=== PATIENT | female | born 1975 | race Caucasian/White ===

== ENCOUNTER 2020-08-31 19:33 | Emergency (ER) | payer OTHER, SELFPAY ==
[2020-08-31 19:38] VITALS: BP 148/62; PULSE 78; RESP 20; TEMP 36.7; O2SAT 98
--- NOTE | 2020-08-31 19:58 | ED.GENADULT ---
HPI - General Adult General Chief complaint: Recheck/Abnormal Lab/Rx Stated complaint: need a blood transfusion Time Seen by Provider: 08/31/20 19:44 Source: patient Mode of arrival: ambulatory Limitations: no limitations History of Present Illness HPI narrative: Patient is a 44-year-old female sent here by her family doctor due to low hemoglobin, had her H&H checked this past Sunday and it was 6 . Patient states that she just finished her muscle cycle the day before the took her lab work. Patient states that she has a history of anemia and supposed to be on iron pills but she has not been taking it. Patient also states that she has a history of gastric bypass which contributes to her anemia and by not taking iron pills she expected her hemoglobin to be low. Patient denies any GI bleeding or bleeding. Patient states that she felt tired the past week which he attributes to working double shifts. Patient denies being weak, just tired . Review of Systems Review of Systems: All systems reviewed & are unremarkable except as noted in HPI and below Constitutional: Constitutional: Denies body ache(s), Denies chills, Denies excessive sweating, Denies fatigue, Denies fever(s), Denies headache(s), Denies lethargy, Denies malaise and Denies weight loss Eyes: Eyes: Denies blurry vision, Denies change in vision and Denies loss of vision ENT: Denies dizziness, Denies ear discharge, Denies headache(s), Denies lip swelling, Denies epistaxis, Denies nasal congestion, Denies neck pain, Denies throat swelling and Denies tongue swelling Cardiovascular: Cardiovascular: Denies chest pain, Denies chest pain at rest, Denies chest pain with activity, Denies diaphoresis, Denies rapid heart rate, Denies edema, Denies irregular heart rhythm, Denies lightheadedness, Denies palpitations, Denies dyspnea and Denies dyspnea on exertion Respiratory: Respiratory: Denies chest congestion, Denies cough, Denies hemoptysis, Denies dyspnea and Denies dyspnea on exertion Gastrointestinal: Gastrointestinal: Denies abdominal pain, Denies melena, Denies hematochezia, Denies diarrhea, Denies nausea, Denies vomiting and Denies hematemesis Musculoskeletal: Musculoskeletal: Denies abnormal gait, Denies deformity, Denies joint swelling, Denies limited range of motion, Denies neck pain and Denies numbness Neurologic: Denies Abnormal speech present, Denies abnormal gait, Denies confusion, Denies dizziness, Denies headache(s), Denies focal weakness, Denies loss of vision, Denies numbness, Denies Other visual disturbances and Denies Sensory deficit (Neuro) Psychiatric: Psychiatric: Denies confusion, Denies depression, Denies auditory hallucinations, Denies homicidal ideation and Denies suicidal ideation Endocrine: Endocrine: Denies cold intolerance, Denies excessive sweating, Denies fatigue, Denies heat intolerance and Denies palpitations Hematologic/Lymphatic: Hematologic/Lymphatic: Denies easy bleeding and Denies easy bruising Allergic/Immunologic: Allergic/Immunologic: Denies lip swelling, Denies throat swelling and Denies tongue swelling Exam Const: General: cooperative, healthy appearing, comfortable, no acute distress, well developed, alert and awake; No confusion Orientation/consciousness: oriented to person, oriented to place, oriented to time, patient oriented x3 and No confusion Limitations: no limitations HENMT: Head: normal to inspection, normocephalic and atraumatic Ears: hearing grossly normal bilaterally, TM normal on the right and TM normal on the left General nose exam: Normal external nose present, Normal nares present and No nasal discharge present Face and sinus: normal facial exam Mouth: Yes Normal oral and palatal mucosa present, Yes lip normal, Yes tongue normal and Yes oropharynx normal Throat: posterior oropharynx normal, tonsils normal and uvula midline Eyes: General: appearance normal, both eyes and all related structures Pupils: Equal, round and reactive pup
[2020-08-31 20:02] LABS: Basophils Absolute Auto 0.1 K/mm3 (0.0-0.1); Basophils Percent Auto 0.8 % (0.2-1.2); Eosinophils Absolute Auto 0.1 K/mm3 (0-0.3); Eosinophils Percent Auto 1.7 % (0-4.4); Hematocrit 25.3 % (37.0-47.0); Immature Granulocyte Absolute 0.01 K/mm3 (0.00-0.031); Immature Granulocyte Percent A 0.2 % (0-0.5); Immature Platelet Fraction Pct 7.1 % (0.9-11.2); Lymphocytes Absolute Auto 2.35 K/mm3 (0.9-3.2); Lymphocytes Percent Auto 39.9 % (18.3-44.2); Mean Corpuscular HGB Conc 26.9 g/dl (32-36); Mean Corpuscular Hemoglobin 16.6 pg (26-34); Mean Corpuscular Volume 61.9 fl (80-100); Monocytes Absolute Auto 0.5 K/mm3 (0.1-0.6); Monocytes Percent Auto 7.8 % (2.6-8.5); Neutrophils Absolute Auto 2.9 K/mm3 (1.3-6.7); Neutrophils Percent Auto 49.6 % (45.5-73.1); Platelet Count Result 373 k/mm3 (150-375); Red Blood Count 4.09 M/mm3 (4.2-5.4); White Blood Count 5.9 K/mm3 (4.5-10.0)
[2020-08-31 20:10] LABS: INR 1.1; Partial Thromboplastin Time 27.2 SECONDS (22.3-36.8); Prothrombin Time 13.8 Seconds (11.1-14.7)
[2020-08-31 20:12] LABS: Alanine Aminotransferase 13 U/L (4-35); Albumin Level 4.4 g/dL (3.5-5.1); Alkaline Phosphatase 123 U/L (38-126); Anion Gap 9 mmol/L (8-16); Aspartate Amino Transferase 26 U/L (14-36); Bilirubin,Total 0.3 mg/dL (0.2-1.3); Blood Urea Nitrogen 9 mg/dL (7-17); Calcium 9.1 mg/dL (8.4-10.2); Carbon Dioxide 27 mmol/L (22-30); Chloride 106 mmol/L (98-107); Estimated CRCL calculation 82 ml/min; Estimated Glomerular Filt Rate > 60; Glucose 97 mg/dL (65-105); Potassium 3.9 mmol/L (3.4-5.0); Sodium 142 mmol/L (137-145)
[2020-08-31 20:21] LABS: Hemoglobin 6.8 g/dL (12.0-15.0)
[2020-08-31 20:25] LABS: Anisocytosis 3+ (NORMAL); Hypochromasia 2+ (NORMAL); Ovalocytes 1+ (NORMAL); Platelet Estimate Adequate (Adequate)
[2020-08-31] MEDS: FERROUS SULFATE 324 MG TABLET PO (21:16)
[2020-08-31 21:20] VITALS: BP 132/88; PULSE 76; RESP 18; O2SAT 99
== END 2020-08-31 21:22 | disposition home or self-care (01) ==
PROVIDERS: Emergency Provider Emergency Medicine; PCP Nurse Practitioner Family
DX: D50.9 Iron deficiency anemia, unspecified (principal)
CPT/HCPCS: 36415; 80053; 85025; 85055; 85610; 85730; 86850; 86900; 86901; 99283; A9270

== ENCOUNTER 2020-09-03 15:58 | Observation (INO) | payer OTHER, SELFPAY ==
[2020-09-03] VITALS (12 sets, daily range): BP systolic 114–136; BP diastolic 62–104; PULSE 64–99; RESP 16–25; TEMP 36.3–36.9; O2SAT 98–100; BMI 35.2
--- NOTE | 2020-09-03 16:04 | ECG_ITS ---
Measurements Intervals [place] Rate: 70 P: 41 IL: 141 QRS: 19 QRSD: 106 T: 14 QT: 384 QTc: 416 Interpretive Statements SINUS RHYTHM NORMAL ECG Electronically Signed On 09-03-2020 17:10:47 CDT by Akash Hylton D.O.
[2020-09-03 16:52] LABS: Basophils Absolute Auto 0.1 K/mm3 (0.0-0.1); Basophils Percent Auto 0.8 % (0.2-1.2); Eosinophils Absolute Auto 0.1 K/mm3 (0-0.3); Eosinophils Percent Auto 0.9 % (0-4.4); Hematocrit 26.1 % (37.0-47.0); Immature Granulocyte Absolute 0.02 K/mm3 (0.00-0.031); Immature Granulocyte Percent A 0.3 % (0-0.5); Immature Platelet Fraction Pct 7.8 % (0.9-11.2); Lymphocytes Absolute Auto 1.09 K/mm3 (0.9-3.2); Lymphocytes Percent Auto 16.5 % (18.3-44.2); Mean Corpuscular HGB Conc 27.2 g/dl (32-36); Mean Corpuscular Hemoglobin 16.7 pg (26-34); Mean Corpuscular Volume 61.3 fl (80-100); Monocytes Absolute Auto 0.5 K/mm3 (0.1-0.6); Monocytes Percent Auto 7.3 % (2.6-8.5); Neutrophils Absolute Auto 4.9 K/mm3 (1.3-6.7); Neutrophils Percent Auto 74.2 % (45.5-73.1); Platelet Count Result 372 k/mm3 (150-375); Red Blood Count 4.26 M/mm3 (4.2-5.4); White Blood Count 6.6 K/mm3 (4.5-10.0)
[2020-09-03 16:53] LABS: Add Urine Microscopic? YES; Appearance Urine Cloudy (Clear); Bacteria Urine Trace /hpf; Bilirubin Urine Negative (Negative); Blood Urine Negative (Negative); Color Urine Yellow (Yellow); Glucose Urine UA Negative (Negative); Ketones Urine Negative (Negative); Leukocyte Esterase Ur Negative LEU/UL (Negative); Mucus Urine Few /lpf; Nitrate Urine Negative (Negative); Protein Urine Negative (Negative); RBC Urine 0-2 /hpf (0-2); Specific Grav Ur 1.013 (1.001-1.035); Squamous Epithelial Cell Urine Many /hpf (Few)
--- NOTE | 2020-09-03 16:58 | ED.GENADULT ---
HPI - General Adult General Chief complaint: Syncope Stated complaint: SYNCOPE Time Seen by Provider: 09/03/20 16:06 History of Present Illness HPI narrative: Patient is a 44-year-old female who presents to the ER with syncope. Patient was seen in the ER 2 days ago for anemia. Patient declined admission and blood transfusion at that time. She has not been taking her iron or vitamin B supplements. She has history of chronic anemia as well as sickle cell trait. She reports she has been eating chicken and fish to get adequate protein and nourishment. Reports today while she was sitting at work on the phone she began to feel hot and flushed and then lost consciousness. A coworker said she was unconscious for couple minutes. Patient denies any prodrome of chest pain or racing of the heart. She has no dark black stools and denies vaginal bleeding. Related Data Home Medications Medication Instructions Recorded Confirmed No Home Medications 09/03/20 09/03/20 Allergies Allergy/AdvReac Type Severity Reaction Status Date / Time Penicillins AdvReac Rash Verified 09/03/20 16:21 Review of Systems Review of Systems: All systems reviewed & are unremarkable except as noted in HPI and below Constitutional: Constitutional: Denies chills, Denies fever(s) and Denies weakness ENT: Denies nasal congestion and Denies sore throat Cardiovascular: Cardiovascular: Denies chest pain, Denies rapid heart rate and Denies radiating jaw, neck or arm pain Respiratory: Respiratory: Denies cough and Denies dyspnea Neurologic: Reports syncope and Denies focal weakness PMFSH Past Medical History Medical History (Updated 09/03/20 @ 17:32 by Varun Sun MD) Sickle cell trait Surgical History Surgical History (Updated 09/03/20 @ 17:27 by Varun Sun MD) H/O gastric bypass Social History Social History (Updated 09/03/20 @ 17:28 by Varun Sun MD) Smoking status: Never smoker Exam Narrative: Exam Narrative: GENERAL: Well-appearing, well-nourished, and in no acute distress. HEAD: Normocephalic, atraumatic. EYES: PERRL, pale conjunctiva. ENT: Mucous membranes moist. CHEST: Clear to auscultation. No respiratory distress. HEART: Regular rate and rhythm. Normal peripheral pulses. ABDOMEN: Soft, nontender, nondistended. EXTREMITIES: Normal range of motion. No edema. NEURO: Alert and oriented x3. PSYCH: Normal mood and affect. Course Course Emergency Course: Patient informed of results. Admit for observation and transfusion. Vital Signs Vital signs: Vital Signs Temperature 98.3 F 09/03/20 16:10 Pulse Rate 79 09/03/20 16:10 Respiratory Rate 19 09/03/20 16:10 Blood Pressure 114/104 H 09/03/20 16:10 Pulse Oximetry 100 09/03/20 16:10 Temperature 98.3 F 09/03/20 16:10 Pulse Rate 68 09/03/20 17:24 Respiratory Rate 25 H 09/03/20 17:24 Blood Pressure 127/90 09/03/20 17:24 Pulse Oximetry 100 09/03/20 17:24 Medical Decision Making Vital Signs Vital Signs: Vital Signs Temperature 98.3 F 09/03/20 16:10 Pulse Rate 79 09/03/20 16:10 Respiratory Rate 19 09/03/20 16:10 Blood Pressure 114/104 H 09/03/20 16:10 Pulse Oximetry 100 09/03/20 16:10 Temperature 98.3 F 09/03/20 16:10 Pulse Rate 68 09/03/20 17:24 Respiratory Rate 25 H 09/03/20 17:24 Blood Pressure 127/90 09/03/20 17:24 Pulse Oximetry 100 09/03/20 17:24 Lab Data Result diagrams: 09/03/20 16:25 09/03/20 16:25 Labs: Lab Results 09/03/20 09/03/20 09/03/20 Range/Units 16:25 16:25 16:25 WBC 6.6 (4.5-10.0) K/mm3 RBC 4.26 (4.2-5.4) M/mm3 Hgb 7.0 L (12.0-15.0) g/dL Hct 26.1 L (37.0-47.0) % MCV 61.3 L (80-100) fl MCH 16.7 L (26-34) pg MCHC 27.2 L (32-36) g/dl RDW 22.0 H (11.5-14.5) % Plt Count 372 (150-375) k/mm3 MPV TNP Immature Gran % (Auto) 0.3 (0-0.5) % Neut % (Auto) 74.2 H (45.5-
[2020-09-03 17:00] LABS: Hypochromasia 2+ (NORMAL); Ovalocytes 2+ (NORMAL); Platelet Estimate Adequate (Adequate)
[2020-09-03 17:01] LABS: Crenated RBC 1+ (NORMAL); Target Cells 1+ (NORMAL)
[2020-09-03 17:02] LABS: Anion Gap 9 mmol/L (8-16); Blood Urea Nitrogen 11 mg/dL (7-17); Calcium 9.2 mg/dL (8.4-10.2); Carbon Dioxide 25 mmol/L (22-30); Chloride 105 mmol/L (98-107); Estimated CRCL calculation 104 ml/min; Estimated Glomerular Filt Rate > 60; Glucose 81 mg/dL (65-105); Potassium 4.1 mmol/L (3.4-5.0); Sodium 139 mmol/L (137-145)
[2020-09-03 17:27] LABS: Iron 24 ug/dL (37-170)
[2020-09-03 17:34] LABS: Percent Iron Saturation 5 % (20-50)
[2020-09-03 18:00] LABS: Ferritin 3.83 ng/mL (6.24-137)
--- NOTE | 2020-09-03 18:25 | ADMGEN ---
This patient, Colleen Mccloud, was admitted to Medical Room 250-01. Patient/family oriented to hospital policies and general routines including ID bracelet, bed and alarms, visiting hours, pain management, procedures, bathroom and other care routines, personal items, smoking policy, room service/diet, and visiting hours. Information on how to activate the Rapid Response Team has been discussed. Patient/Family are encouraged to report perceived risks to care and to ask questions if they do not understand what they are told or what they should do.
[2020-09-03 18:29] LABS: Folic Acid 7.5 ng/mL (2.76->20)
[2020-09-03 18:36] LABS: Hematocrit 25.9 % (37.0-47.0)
[2020-09-03] MEDS: SODIUM CHLORIDE 0.9% IV 250 ML 30 ML IV CONT (20:27)
[2020-09-03 20:33] LABS: Immature Reticulocyte Fraction 20.1 % (3.0-15.9); Reticulocyte Hemoglobin Conten 17.8 pg (28.2-35.7); Reticulocyte Percent 1.33 % (0.7-4.3); Reticulocytes Absolute 0.06 B/L (32.2-175.7)
--- NOTE | 2020-09-03 20:33 | PM.IMHP ---
H&P: HPI History of Present Illness Date/Time: 09/03/20 20:33 Chief complaint: SYNCOPE,ANEMIA Narrative: Colleen Mccloud is a 44 year old female Who has a history of anemia. The patient has had a gastric bypass several years ago and has not been taking any B12 or iron. The patient stated that her hemoglobin has not been above 9 and a long time. She has been going to school working full-time and just has been feeling very fatigued. The patient was working at [employer] today when she passed out. She felt very fatigued she did not have any chest pain or shortness of breath. The patient came to ER 2 days ago due to her anemia she said that she has not had any blood transfusions in the past. She has not been taking her iron or B12 supplements. She also has a sickle cell trait. Her hemoglobin was 7.0 today and 2 days ago was 6.8. the patient was sent here on 08/31/2020 from her doctor's office because her hemoglobin was 6 . The patient stated she recently had a menstrual period but it was not heavy. patient has been typed and cross-matched for 2 units packed red blood cells. We have discussed the side effects of a reaction to blood. I also added anemia profile and I call lab to see what labs can be taken from the blood that they already Retrieved. Patient's ferritin and iron are low. we discussed seeing a rehabilitation clerk and the patient stated that she would agree to see him tomorrow face not available to see her tomorrow that she would be able to follow-up outpatient ang. She is admitted as observation on the date of service of 09/03/2020 Review of Systems Review of Systems: All systems reviewed & are unremarkable except as noted in HPI and below Constitutional: Constitutional: Reports as per HPI and Reports no additional constitutional complaints Eyes: Eyes: Reports as per HPI and Reports no additional eye complaints ENT: Reports system reviewed and no additional complaints, except as documented and Reports Normal hearing present Cardiovascular: Cardiovascular: Reports no additional cardiovascular complaints Respiratory: Respiratory: Reports no additional respiratory complaints and Reports no additional respiratory complaints Gastrointestinal: Gastrointestinal: Reports as per HPI and Reports no additional gastrointestinal complaints Musculoskeletal: Musculoskeletal: Reports no additional musculoskeletal complaints Integumentary/Breasts: Skin/Breast: Reports system reviewed and no additional complaints, except as docu and Reports as per HPI Neurologic: Reports system reviewed and no additional complaints, except as documented, Reports as per HPI and Reports Normal hearing present Psychiatric: Psychiatric: Reports no additional psychiatric complaints and Reports as per HPI Endocrine: Endocrine: Reports no additional endocrine complaints Hematologic/Lymphatic: Hematologic/Lymphatic: Reports no additional hematologic/lymphatic complaints Allergic/Immunologic: Allergic/Immunologic: Reports no additional allergic/immunologic complaints PMFSH Past Medical History Medical History (Updated 09/03/20 @ 20:41 by Evelina Fox NP) Sickle cell trait Surgical History Surgical History (Updated 09/03/20 @ 20:41 by Evelina Fox NP) H/O gastric bypass History of section, classical x4 Family History Family History Father Congestive heart failure Social History Social History (Updated 09/03/20 @ 20:43 by Evelina Fox NP) Social History: the patient works full-time at [employer] and 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 She has 5 children. Her son Gabe is over the age of 18 and she desires to have him is a durable power civil rights attorney for healthcare. She is a full code. She occasionally has a drink of alcohol but very rarely. Only on special occasions. She is a
[2020-09-03 21:26] LABS: Bilirubin,Total 0.4 mg/dL (0.2-1.3); Lactate Dehydrogenase 354 U/L (313-618)
[2020-09-03 21:34] LABS: Transferrin 365 mg/dL (206-381)
[2020-09-03 22:13] LABS: Thyroid Stimulating Hormone Reflex 0.944 uIU/mL (0.465-4.68)
[2020-09-04] VITALS (15 sets, daily range): BP systolic 95–124; BP diastolic 48–77; PULSE 57–86; RESP 16–20; TEMP 36.4–37.2; O2SAT 99–100
[2020-09-04 05:24] LABS: Hematocrit 27.4 % (37.0-47.0)
[2020-09-04 05:41] LABS: IFOB Positive Control Positive; Immunochemical Fecal Occult Bl Negative (N)
--- NOTE | 2020-09-04 10:43 | PM.IMPN ---
Progress Note: A&P Assessment and Plan (1) Iron deficiency anemia: Code(s): D50.9 - Iron deficiency anemia, unspecified Status: Acute Assessment and Plan: Secondary to history of gastric bypass and noncompliance with needed supplements. She has not taken her iron or vitamin B12 for 6 months. She was symptomatic with syncope. Hemoglobin was 7.0 and Hct 26.1 at admission. Microcytic. Iron studies are consistent with iron deficiency anemia and vitamin B12 is deficient. Occult blood stool testing was negative. She received 2 units pRBC. Hemoglobin improved to 8.0 and Hct 27.4 today. She feels much better. I discussed her care with Dr. Schrader who has been asked to see her in consultation. He recommends 500mg IV venofer today and tomorrow and IM cyanocobalamin. She will need to follow-up with Dr. Schrader outpatient next week for further management. Plan for repeat CBC 09/06/20. (2) Syncope: Code(s): R55 - Syncope and collapse Status: Acute Assessment and Plan: Likely secondary to anemia. She reports a typical prodrome with dizziness and flushing. She is not orthostatic. She declines additional testing at this time including echocardiogram. Telemetry monitoring demonstrates sinus rhythm with very infrequent PVCs. I discussed that cardiac workup would be indicated in the future should she have another episode of syncope without an identifiable cause. (3) Sickle cell trait: Code(s): D57.3 - Sickle-cell trait Status: Chronic Assessment and Plan: She has no hx of sickle cell anemia. Absolute reticulocyte count is low at 0.06, percent reticulocyte count is 1.33. LDH is 354. Anemia is secondary to iron and vitamin B12 deficiency. Subjective Date/time seen: 09/04/20 10:43 Mrs. Mccloud is a 44 y.o. female with PMH significant for history of gastric bypass approximately 2 years ago and sickle cell trait who is seen in follow-up for anemia. She was transfused 2 units pRBC and feels much better. Energy has improved. She has been up to walk around today and is not having any further dizziness or lightheadedness. She denies chest pain, dyspnea, and palpitations. She denies nausea, vomiting, and abdominal pain. She is tolerating her diet. She has no urinary complaints. She reports no bleeding including no melena, hematochezia, hematemesis, and hematuria. She stopped taking her vitamin B12 and iron supplements 6-8 weeks ago. Review of Systems Review of Systems: All systems reviewed & are unremarkable except as noted in HPI and below Exam Narrative: Exam Narrative: General: Pleasant, well-developed, and well-nourished 44 y.o. female lying in bed resting in no acute distress. HEENT: Normocephalic and atraumatic. Sclerae anicteric. Conjunctival pallor. PERRL. EOMI. Moist mucous membranes. EOMI. Oral mucosa moist. Neck: Supple. Cardiac: Regular rate and rhythm. S1 and S2 normal. Lungs: Lungs are clear to auscultation bilaterally. Abdomen: Bowel sounds are normoactive. Abdomen is soft, non-distended, and non-tender. Extremities: No lower extremity edema. Summer negative. No calf tenderness. Bounding pedal pulses. Neurological: Alert. Exam non-focal to casual conversation. Speech is clear. Skin: Warm and dry. Generalized pallor. Psychiatric: Good judgment and insight. Pleasant mood and appropriate affect. Objective Data Vital Signs Vital Signs: Vital Signs - 24 hr 09/03/20 16:10 09/03/20 16:15 09/03/20 16:26 Temperature 98.3 F 98.4 F Pulse Rate 79 99 77 Respiratory Rate 19 20 Blood Pressure 114/104 H 127/63 130/74 Pulse Oximetry 100 99 09/03/20 16:28 09/03/20 16:29 09/03/20 17:24 Temperature Pulse Rate 81 94 68 Respiratory Rate 25 H Blood Pressure 123/94 H 133/93 H 127/90 Pulse Oximetry 100 09/03/20 18:05 09/03/20 18:52 09/03/20 20:00 Temperature 97.4 F L Pulse Rate 70 73 67 Respiratory Rate 18 20 Blood Pressure 129/95 H 136/94 H Pulse Oximetry 98
[2020-09-04 11:47] LABS: Hematocrit 29.3 % (37.0-47.0); Hemoglobin 8.4 g/dL (12.0-15.0)
[2020-09-04] MEDS: IRON SUCROSE COMPLEX 500 MG in SODIUM CHLORIDE 0.9% IV 250 ML 78.57 MG IVPB (12:11)
[2020-09-04] MEDS: EUCERIN CREAM 120 GM JAR 1 APPLIC TOPICAL (12:12)
[2020-09-04] MEDS: CYANOCOBALAMIN INJ 1,000 MCG/ML VIAL 1000 MCG IM (17:25)
[2020-09-05] VITALS: PULSE 73
[2020-09-05 04:00] VITALS: PULSE 63
[2020-09-05 05:29] LABS: Hemoglobin 8.5 g/dL (12.0-15.0)
[2020-09-05 05:41] VITALS: BP 130/73; PULSE 55; RESP 16; TEMP 36.3; O2SAT 100
[2020-09-05 08:00] VITALS: PULSE 69
[2020-09-05] MEDS: CYANOCOBALAMIN INJ 1,000 MCG/ML VIAL 1000 MCG IM (08:26)
[2020-09-05] MEDS: EUCERIN CREAM 120 GM JAR 1 APPLIC TOPICAL (08:26)
[2020-09-05] MEDS: IRON SUCROSE COMPLEX 500 MG in SODIUM CHLORIDE 0.9% IV 250 ML 50 MG IVPB (08:26)
--- NOTE | 2020-09-05 09:45 | PM.DS ---
DS: Admitting Diagnosis Admitting Diagnosis Admitting Diagnosis: SYNCOPE,ANEMIA DS: Discharge Diagnosis Discharge Diagnosis (1) Iron deficiency anemia: Code(s): D50.9 - Iron deficiency anemia, unspecified Status: Acute Assessment and Plan: Discharge Summary (Date of service 09/05/20): Mrs. Mccloud is a 44 y.o. female with PMH significant for gastric bypass surgery approximately 2 years ago and sickle cell trait who presented to the emergency department for the evaluation of syncope. She was at work and felt very hot and flushed and had a brief loss of consciousness. She did not have any prior chest pain, dyspnea, or palpitations. She did not have any seizure-like activity, post-ictal confusion, or urinary incontinence. She reported that she had not taken her vitamin B12 and folate for 6-8 months. Initial workup in the emergency department included Hb 7.0, Hct 25.9, MCV 61.3. EKG demonstrated sinus rhythm with QTc 416. Syncope was felt secondary to anemia and she was admitted to the hospitalist service for blood transfusion given symptomatic anemia. She received 2 units pRBC. Iron studies were consistent with iron deficiency anemia and vitamin B12 was deficient. Her last menstrual cycle was approximately 1 week prior. She reported no bleeding including no hematuria, melena, and hematochezia. Occult blood stool testing was negative. She received 2 units pRBC. I discussed the case with Dr. Schrader who noted that he would see her outpatient and recommended she have 500mg IV venofer for 2 days and IM cyanocobalamin for 3 days. These were supplemented. Hemoglobin improved to 8.5 and Hct 30. She felt much better. She was able to ambulate without any dizziness or lightheadedness and had no further symptoms. She was not orthostaic. She will need to follow-up with Dr. Schrader outpatient next week for further management and she verbalized understanding with the plan of care. She was discharged in stable condition 09/05/20. Plan for repeat CBC 09/06/20. (2) Syncope: Code(s): R55 - Syncope and collapse Status: Acute Assessment and Plan: Likely secondary to anemia. She reports a typical prodrome with dizziness and flushing. She was not orthostatic. She declined additional testing at this time including echocardiogram and carotid doppler US. Telemetry monitoring demonstrated sinus rhythm with very infrequent PVCs. I discussed that cardiac workup would be indicated in the future should she have another episode of syncope without an identifiable cause. (3) Sickle cell trait: Code(s): D57.3 - Sickle-cell trait Status: Chronic Assessment and Plan: She has no hx of sickle cell anemia. Absolute reticulocyte count was low at 0.06, percent reticulocyte count is 1.33. LDH is 354. Anemia is secondary to iron and vitamin B12 deficiency. (4) Vitamin B12 deficiency: Code(s): E53.8 - Deficiency of other specified B group vitamins Status: Acute Assessment and Plan: Vitamin B12 was deficient at 247. Discussed with Dr. Schrader who recommend 3 days of IM cyanocobalamin. She received 1 dose 09/04 and 1 dose 09/05 She was prescribed 1 additional dose tomorrow, 09/06. 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 She will need to follow-up with Dr. Schrader for long-term supplementation. DS: Summary Hospital Course Reason for hospitalization: Syncope due to anemia Hospital Course: As above. Status at Discharge Functional status at discharge: independent ambulation Overall status at discharge: patient is back to baseline Time Spent with Patient Time attestation: Total time spent providing and/or coordinating discharge services: 38 minutes Exam Narrative: Exam Narrative: Vitals at presentation: Temp Pulse Resp BP Pulse Ox 98.3 F 79
--- NOTE | 2020-09-05 10:00 | PC.NURSE ---
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
[2020-09-08 23:00] LABS: Albumin 3.6 g/dL (3.8-4.8); Alpha 1 Globulin 0.3 g/dL (0.2-0.3); Alpha 2 Globulin 0.7 g/dL (0.5-0.9); Beta 1 Globulin 0.5 g/dL (0.4-0.6); Gamma Globulin 1.3 g/dL (0.8-1.7); Protein, Total 6.8 g/dL (6.1-8.1)
[2020-09-09 04:14] LABS: Haptoglobin 114 mg/dL (43-212)
[2020-09-10 16:36] LABS: Creatinine, Random Urine 94 mg/dL (20-275); Total Protein/Creatinine Ratio 74 mg/g creat (21-161)
[2020-09-10 18:21] LABS: Soluble Transferrin Receptor 5.87 mg/L (0.76-1.76)
== END 2020-09-05 14:04 | disposition home or self-care (01) ==
LOC: ANHED 17:32 → ANH2MED 17:51
PROVIDERS: Emergency Medicine; Nurse Practitioner; Physician Assistant; Admitting Provider Internal Medicine; Emergency Provider Emergency Medicine; PCP Nurse Practitioner Family; Visit Provider Family Medicine
DX: D50.9 Iron deficiency anemia, unspecified (principal); R55 Syncope and collapse; D57.3 Sickle-cell trait; Z98.84 Bariatric surgery status
CPT/HCPCS: 36415; 36430; 80048; 81001; 81025; 82247; 82248; 82274; 82570; 82607; 82728; 82746; 83010; 83540; 83550; 83615; 84155; 84156; 84165; 84166; 84238; 84443; 84466; 85014; 85018; 85025; 85046; 85055; 86850; 86880; 86900; 86901; 86923; 93005; 96365; 96366; 96372; 99285; A9270; G0378; G0379; J1756; J3420; J7050; P9016

== ENCOUNTER 2020-09-24 14:11 | Outpatient (CLI) | payer OTHER, SELFPAY ==
[2020-09-24 14:35] LABS: Basophils Absolute Auto 0.1 K/mm3 (0.0-0.1); Eosinophils Absolute Auto 0.1 K/mm3 (0-0.3); Eosinophils Percent Auto 1.8 % (0-4.4); Hematocrit 36.8 % (37.0-47.0); Hemoglobin 10.7 g/dL (12.0-15.0); Immature Granulocyte Absolute 0.01 K/mm3 (0.00-0.031); Immature Granulocyte Percent A 0.2 % (0-0.5); Immature Platelet Fraction Pct 11.3 % (0.9-11.2); Lymphocytes Percent Auto 32.4 % (18.3-44.2); Mean Corpuscular HGB Conc 29.1 g/dl (32-36); Mean Corpuscular Volume 72.2 fl (80-100); Monocytes Absolute Auto 0.3 K/mm3 (0.1-0.6); Monocytes Percent Auto 5.2 % (2.6-8.5); Neutrophils Absolute Auto 3.7 K/mm3 (1.3-6.7); Neutrophils Percent Auto 59.4 % (45.5-73.1); Platelet Count Result 357 k/mm3 (150-375); White Blood Count 6.2 K/mm3 (4.5-10.0)
[2020-09-24 14:37] LABS: Platelet Estimate Adequate (Adequate)
[2020-09-24 14:38] LABS: Atypical Lymphocytes Present; Ovalocytes 1+ (NORMAL)
[2020-09-24 14:39] LABS: Poikilocytosis 1+ (NORMAL)
[2020-09-24 16:34] LABS: Iron 58 ug/dL (37-170)
[2020-09-24 16:37] LABS: Alanine Aminotransferase 22 U/L (4-35); Albumin Level 4.2 g/dL (3.5-5.1); Alkaline Phosphatase 113 U/L (38-126); Anion Gap 8 mmol/L (8-16); Aspartate Amino Transferase 30 U/L (14-36); Bilirubin,Total 0.5 mg/dL (0.2-1.3); Blood Urea Nitrogen 11 mg/dL (7-17); Calcium 9.7 mg/dL (8.4-10.2); Carbon Dioxide 29 mmol/L (22-30); Chloride 103 mmol/L (98-107); Estimated Glomerular Filt Rate > 60; Glucose 91 mg/dL (65-105); Potassium 4.8 mmol/L (3.4-5.0); Sodium 140 mmol/L (137-145)
[2020-09-24 16:43] LABS: Percent Iron Saturation 15 % (20-50)
== END 2020-09-24 14:12 | disposition home or self-care (01) ==
PROVIDERS: PCP Nurse Practitioner Family; Visit Provider Internal Medicine Hematology & Oncology
DX: D64.9 Anemia, unspecified (principal)
CPT/HCPCS: 36415; 80053; 82607; 82728; 83540; 83550; 85025; 85055

== ENCOUNTER 2020-12-21 15:44 | Outpatient (CLI) | payer OTHER, SELFPAY ==
[2020-12-21 16:01] LABS: Hematocrit 35.8 % (37.0-47.0); Hemoglobin 11.3 g/dL (12.0-15.0); Mean Corpuscular HGB Conc 31.6 g/dl (32-36); Mean Corpuscular Hemoglobin 25.1 pg (26-34); Mean Corpuscular Volume 79.4 fl (80-100); Mean Platelet Volume 10.4 fl (7.4-10.4); Platelet Count Result 228 k/mm3 (150-375); Red Blood Count 4.51 M/mm3 (4.2-5.4); Red Cell Distribution Width 15.2 % (11.5-14.5); White Blood Count 7.1 K/mm3 (4.5-10.0)
[2020-12-21 17:41] LABS: Iron 34 ug/dL (37-170)
[2020-12-21 17:52] LABS: Percent Iron Saturation 8 % (20-50)
[2020-12-21 18:19] LABS: Ferritin 6.95 ng/mL (6.24-137)
[2020-12-21 18:47] LABS: Folic Acid 10.3 ng/mL (2.76->20)
== END 2020-12-21 15:45 | disposition home or self-care (01) ==
LOC: ANHLAB 15:45
PROVIDERS: PCP Nurse Practitioner Family; Visit Provider Internal Medicine Hematology & Oncology
DX: D64.9 Anemia, unspecified (principal)
CPT/HCPCS: 36415; 82607; 82728; 82746; 83540; 83550; 85027

== ENCOUNTER 2021-04-19 15:54 | Outpatient (CLI) | payer OTHER, SELFPAY ==
[2021-04-19 16:07] LABS: Basophils Absolute Auto 0.1 K/mm3 (0.0-0.1); Basophils Percent Auto 0.9 % (0.2-1.2); Eosinophils Absolute Auto 0.1 K/mm3 (0-0.3); Eosinophils Percent Auto 2.3 % (0-4.4); Hematocrit 32.1 % (37.0-47.0); Hemoglobin 9.6 g/dL (12.0-15.0); Immature Granulocyte Absolute 0.01 K/mm3 (0.00-0.031); Immature Granulocyte Percent A 0.2 % (0-0.5); Lymphocytes Absolute Auto 2.29 K/mm3 (0.9-3.2); Lymphocytes Percent Auto 40.3 % (18.3-44.2); Mean Corpuscular HGB Conc 29.9 g/dl (32-36); Mean Corpuscular Hemoglobin 21.8 pg (26-34); Mean Corpuscular Volume 72.8 fl (80-100); Monocytes Absolute Auto 0.3 K/mm3 (0.1-0.6); Monocytes Percent Auto 5.6 % (2.6-8.5); Neutrophils Absolute Auto 2.9 K/mm3 (1.3-6.7); Neutrophils Percent Auto 50.7 % (45.5-73.1); Platelet Count Result 270 k/mm3 (150-375); Red Blood Count 4.41 M/mm3 (4.2-5.4); Red Cell Distribution Width 15.7 % (11.5-14.5); White Blood Count 5.7 K/mm3 (4.5-10.0)
[2021-04-19 16:12] LABS: Hypochromasia 1+ (NORMAL); Ovalocytes 1+ (NORMAL); Platelet Estimate Adequate (Adequate); Poikilocytosis 1+ (NORMAL)
[2021-04-19 18:55] LABS: Iron 18 ug/dL (37-170); Percent Iron Saturation 4 % (20-50)
[2021-04-19 19:32] LABS: Ferritin 5.04 ng/mL (6.24-137)
[2021-04-19 20:17] LABS: Folic Acid 5.2 ng/mL (2.76->20)
== END 2021-04-19 15:55 | disposition home or self-care (01) ==
LOC: ANHLAB 15:56
PROVIDERS: PCP Nurse Practitioner Family; Visit Provider Internal Medicine Hematology & Oncology
DX: D64.9 Anemia, unspecified (principal)
CPT/HCPCS: 36415; 82607; 82728; 82746; 83540; 83550; 85025